=== PATIENT | male | born 1965 | race Caucasian/White ===

== ENCOUNTER → 2017-11-10 | Outpatient (CLI) | payer OTHER | END | disposition home or self-care (01) | LOC: C.CPL 14:22 | PROVIDERS: ATTEND Orthopaedic Surgery | DX: S62.623B Displaced fracture of middle phalanx of left middle finger, initial encounter for open fracture (principal); X58.XXXA Exposure to other specified factors, initial encounter; Z01.810 Encounter for preprocedural cardiovascular examination ==